=== PATIENT | female | born 1970 | race Caucasian/White ===

== ENCOUNTER 2018-10-13 08:08 | Day surgery (SDC) | payer BC, SELFPAY ==
--- NOTE | 2018-10-13 06:37 | W.COLOREPORT ---
Date of service: 10/13/18 Time of Service: 09:00 Colonoscopy Report Date of procedure: 10/13/18 Pre-op diagnosis general: Colon Cancer Screening Post-op diagnosis procedure note: same Procedure: Colonoscopy Surgeon: Hawa Farmer Anesthesia proc note operative: MAC (Manjit Goff, HUMAN RESOURCES OPERATIONS MANAGER/ ASA 2) Estimated blood loss (mL): 0 Pathology: none sent Complications: None Disposition: same day Indications: Mrs. Flaherty is a pleasant 48-year-old female who was seen in the office for her first screening colonoscopy. Risks, benefits and complications have been reviewed. Complications include but are not limited to bleeding, pain, perforation, missed small lesion/polyp, sore throat, aspiration and adverse reaction to the medications. Questions were entertained and answered to their satisfaction and they wished to proceed. No guarantees were given or implied. Prep: Miralax/Dulcolax Procedure Start Time: 09:00 Procedure End Time: 09:26 Retraction Time: 12 minutes Findings: Normal colon Procedure Description: After informed consent was obtained the patient was taken to the procedure room and placed in a left decubitous position. Monitors were applied and a time out was done. The patients name, date of , procedure, allergies to medications and metal in their body was reviewed. The patient was then sedated. Once sedated and comfortable a rectal exam was done. External exam was normal. Internal exam revealed a normal sphincter tone and no palpable masses. The scope was then introduced and retro-flexed. No internal hemorrhoids were identified. The scope was then advanced to the cecum without difficulty. The TI and appendiceal orifice were identified. The prep was adequate. The scope was then slowly retracted over 12 minutes back into the rectum. There were no polyps and no diverticuli. The scope was removed and the patient was woken up and taken back to Same day surgery in stable condition. The patient tolerated the procedure well and there were no immediate complications. Follow up: The patient should follow up in 10 years unless they develop changes in bowel habits or other new gastrointestinal complaints.
--- NOTE | 2018-10-13 06:40 | W.PM.DSUDISC ---
Discharge Plan Disposition Patient Disposition: HOME Condition: Good Discharge Details Reason For Visit: Colon Cancer Screening Attending Provider: Hawa Farmer Primary Care Provider: Nell Nicholson Home Meds and New Rx's Prescriptions: Continued blood-glucose meter misc .Route .MEDSUPPLY Qty: 1 RF: 0 Blood Glucose Test strip .ROUTE .MEDSUPPLY Qty: 100 RF: 3 lancets misc .ROUTE .MEDSUPPLY Qty: 100 RF: 3 simvastatin 20 mg tablet 20 mg PO HS Qty: 90 RF: 3 Mirena 1 EACH intrauterine device 1 ea Intrauterine as directed RF: 0 One Daily For Women 1 EACH tablet 1 ea PO DAILY RF: 0 calcium-vitamin D3-vitamin K 1 EACH tablet,chewable 1 ea PO DAILY RF: 0 FreeStyle Lite Strips 1 EACH strip 1 ea Miscellaneous DAILY Qty: 100 RF: 5 lancets [FreeStyle Lancets] 1 EACH misc 1 ea Miscellaneous DAILY Qty: 100 RF: 3 venlafaxine 75 mg capsule,extended release 24hr 75 mg PO DAILY Qty: 90 RF: 3 lisinopril 5 mg tablet 5 mg PO DAILY Qty: 90 RF: 3 metformin 750 mg tablet extended release 24 hr 750 mg PO BID Qty: 180 RF: 3 aspirin [Aspir-81] 81 MG tablet,delayed release (DR/EC) 81 mg PO DAILY RF: 0 Discontinued bisacodyl [Dulcolax (bisacodyl)] 5 mg tablet,delayed release (DR/EC) 5 mg PO ONCE Qty: 4 RF: 0 polyethylene glycol 3350 17 gram/dose powder 255 g PO ONCE Qty: 255 RF: 0 Discharge Instructions Instructions: Colonoscopy (DC) Additional Instructions: Findings: Normal colon Follow up: 10 years Please call if you develop: fevers >101.5 Nausea or Vomiting Abdominal pain that is not transient DAY SURGERY UNIT POST COLONOSCOPY INSTRUCTIONS 1. Because there will be medication in your system for the next 24 hours, you may feel a little sleepy. Your coordination will be affected. Therefore: a. Do not drive or operate dangerous equipment for 24 hours. b. Do not drink alcohol beverages for 24 hours (not even beer). c. Plan to go home and rest for the day. 2. Generally there are no restrictions on your activity after a day or so has gone by, but you may feel a bit fatigued for a few days. 3 After you arrive home you may have a light meal and return to a normal diet as you can tolerate it without feeling sick to your stomach. 4. After surgery, you may feel pain or discomfort. This should be only transient, but if it persists please contact your doctor. 5. If there are any questions regarding the findings of your procedure, please feel free to contact your doctor. 6. If you are unable to contact your doctor with a problem, contact the hospital at [phone]. 7. Continue all your regular medications unless directed otherwise. I understand the above instructions and have no questions. Signature of Patient or Responsible Adult Escort Date/Time Name of Responsible Adult Escort Signature of Nurse Date/Time Activity:: Activity as Tolerated Diet:: As Tolerated Discharge Orders Discharge Orders: Discharge Order (Routine); Ordered 10/13/18 Ordered By: Hawa Farmer DS: Diagnosis Discharge Diagnosis (1) S/P colonoscopy: Status: Acute
[2018-10-13 08:29] VITALS: BP 109/78; PULSE 97; RESP 16; TEMP 37.2; O2SAT 99
[2018-10-13] MEDS: Lactated Ringers 1,000 ML 80 ML IV (08:49)
[2018-10-13 10:00] VITALS: BP 112/83; PULSE 70; RESP 16; O2SAT 100
== END 2018-10-13 10:35 | disposition home or self-care (01) ==
LOC: SUR 08:09
PROVIDERS: PCP Nurse Practitioner Family; Visit Provider Surgery
PROC: 0DJD8ZZ Inspection of Lower Intestinal Tract, Via Natural or Artificial Opening Endoscopic (ICD-10-PCS; CPT 45378; principal; 2018-10-13 09:15)
DX: Z12.11 Encounter for screening for malignant neoplasm of colon (principal); E11.9 Type 2 diabetes mellitus without complications; Z79.84 Long term (current) use of oral hypoglycemic drugs
CPT/HCPCS: 45378; J2250

== ENCOUNTER 2019-03-01 07:21 | Outpatient (CLI) | payer BC, SELFPAY ==
[2019-03-01 09:40] LABS: ALT 17 U/L (12-78); AST 11 U/L (15-37); Alkaline Phosphatase 56 U/L (46-116); Anion Gap 9.5 mmol/L (3-11); BUN 12 mg/dL (7-18); Bilirubin, Total 0.2 mg/dL (0.2-1.0); CO2 29.5 mmol/L (21.0-32.0); CREATININE 0.53 mg/dL (0.55-1.02); Calcium 9.1 mg/dL (8.5-10.1); Calculated LDL 82; Chloride 102 mmol/L (98-107); Cholesterol 153 mg/dL (50-200); Glucose 114 mg/dL (70-100); HDL Cholesterol 60 mg/dL (40-60); Sodium 141 mmol/L (136-145); Triglyceride 55 mg/dL (30-150)
[2019-03-01 09:44] LABS: COMMENT (LAB VIEW ONLY) 53.44 mg/dL; Microalb ug/mg Crea 15.9 ug/mg Cr
[2019-03-01 09:55] LABS: Hemoglobin A1C 7.2 % (4.5-6.2)
== END 2019-03-01 07:41 ==
PROVIDERS: PCP Nurse Practitioner Family; Visit Provider Nurse Practitioner Family
DX: E11.3299 Type 2 diabetes mellitus with mild nonproliferative diabetic retinopathy without macular edema, unspecified eye (principal); E78.5 Hyperlipidemia, unspecified
CPT/HCPCS: 36415; 80053; 80061; 83721; 82043; 82570; 83036

== ENCOUNTER 2020-04-18 04:32 | Outpatient (CLI) | payer OTHER, SELFPAY ==
[2020-04-18 08:05] LABS: Hemoglobin A1C 7.2 % (3.8-5.6)
[2020-04-18 08:11] LABS: COMMENT (LAB VIEW ONLY) 61.93 mg/dL
[2020-04-18 08:35] LABS: Anion Gap 9.3 mmol/L (3-11); BUN 12 mg/dL (7-18); CO2 30.7 mmol/L (21.0-32.0); CREATININE 0.57 mg/dL (0.55-1.02); Calcium 9.4 mg/dL (8.5-10.1); Calculated LDL 75 mg/dL (<100); Chloride 103 mmol/L (98-107); Cholesterol 151 mg/dL (<200); Glucose 110 mg/dL (74-106); HDL Cholesterol 67 mg/dL (40-60); Potassium 4.2 mmol/L (3.5-5.1); Sodium 143 mmol/L (136-145); Triglyceride 45 mg/dL (<150)
== END 2020-04-18 04:52 ==
PROVIDERS: PCP Nurse Practitioner Family; Visit Provider Nurse Practitioner Family
DX: E11.9 Type 2 diabetes mellitus without complications (principal); E78.5 Hyperlipidemia, unspecified
CPT/HCPCS: 36415; 80048; 80061; 82043; 82570; 83036

== ENCOUNTER 2020-10-06 02:51 | Outpatient (CLI) | payer OTHER, SELFPAY ==
--- NOTE | 2020-10-06 08:12 | DI.RAD_ITS ---
EXAM: XR HIP RT COMPLETE AP PELVIS CLINICAL HISTORY: r/o bony abnormality,RT HIP PAIN, M25.551. TECHNIQUE: 2D digital imaging was performed. COMPARISON: No exams were available for comparison FINDINGS: There are no pelvic or hip fractures evident. No degenerative changes evident in the hips. SI joint s appear unremarkable. Surgical clips in the right iliac fossa probably from prior appendectomy. Th ere is also an IUD in the central pelvis. IMPRESSION: No pelvic nor obvious hip fractures evident. DATA REPOSITORY: RADIATION DOSE DELIVERED:
== END 2020-10-06 03:11 ==
PROVIDERS: PCP Nurse Practitioner Family; Visit Provider Nurse Practitioner Family
DX: M25.551 Pain in right hip (principal)
CPT/HCPCS: 73502

== ENCOUNTER 2021-05-09 02:51 | Outpatient (CLI) | payer OTHER, SELFPAY ==
[2021-05-09 07:48] LABS: HCT 40.1 % (36.0-46.0); HGB 12.1 g/dL (11.2-15.7); MCH 26.9 pg (27.0-33.0); MCHC 30.2 % (32.0-36.0); MCV 89.1 fL (80-95); MPV 8.7 fL (8.0-11.0); Platelet Count 403 10^3/uL (130-400); RDW 13.4 % (11.7-14.6); RDW-SD 43.9 fL; WBC 8.73 10^3/uL (4.4-10.8)
[2021-05-09 08:11] LABS: COMMENT (LAB VIEW ONLY) 50.57 mg/dL
[2021-05-09 08:47] LABS: Hemoglobin A1C 6.9 % (<5.7)
[2021-05-09 09:06] LABS: ALT 20 U/L (14-59); AST 9 U/L (15-37); Albumin 4.2 g/dL (3.4-5.0); Alkaline Phosphatase 63 U/L (46-116); Anion Gap 11.7 mmol/L (3-11); BUN 16 mg/dL (7-18); Bilirubin, Total 0.1 mg/dL (0.2-1.0); CO2 27.3 mmol/L (21.0-32.0); CREATININE 0.7 mg/dL (0.55-1.02); Calcium 9.5 mg/dL (8.5-10.1); Calculated LDL 82 mg/dL (<100); Chloride 102 mmol/L (98-107); Cholesterol 162 mg/dL (<200); Glucose 112 mg/dL (74-106); HDL Cholesterol 67 mg/dL (40-60); Potassium 4.9 mmol/L (3.5-5.1); Sodium 141 mmol/L (136-145); Total Protein 7.4 g/dL (6.4-8.2); Triglyceride 65 mg/dL (<150)
== END 2021-05-09 02:52 | disposition home or self-care (01) ==
LOC: LBO 02:51
PROVIDERS: PCP Nurse Practitioner Family; Visit Provider Nurse Practitioner Family
DX: E11.65 Type 2 diabetes mellitus with hyperglycemia (principal); E78.5 Hyperlipidemia, unspecified; Z51.81 Encounter for therapeutic drug level monitoring
CPT/HCPCS: 36415; 80053; 80061; 85027; 82043; 82570; 83036

== ENCOUNTER → 2021-06-12 01:14 | Outpatient (CLI) | payer OTHER, SELFPAY ==
--- NOTE | 2021-06-12 07:45 | DI.MAMMO_ITS ---
Exam(s) MAMMO SCREENING EXAM: MAMMO SCREENING CLINICAL HISTORY: screening,Z12.39 TECHNIQUE: Bilateral full field digital CC and MLO mammographic images were obtained with 3D tomosyn thesis and utilizing computer aided detection (CAD). COMPARISON: Available for comparison. FINDINGS: Masses/Architectural Distortion: None seen. Microcalcifications: No suspicious pleomorphic-type are seen. Skin Thickening/Nipple Retraction: None. IMPRESSION: 1. No significant interval change with no specific features of malignancy noted. 2. Unless there is more urgent need, screening mammography is recommended, as per [employer] guidelines. BI-RADS Category 1 - Negative Breast Density - Category B - Scattered areas of fibroglandular density Breast density category C or D implies that the patient has dense breast tissue. Dense breast tissue is very common and is not abnormal but dense breast tissue can make it harder to find cancer on a ma mmogram. Also, dense breast tissue may increase their breast cancer risk. This information about the result of the mammogram report was provided to the patient to raise their awareness. Use this report when you speak with the patient about their risks for breast cancer, which includes their family hist ory. At that time, you may recommend for more screening tests (Ultrasound or MRI) as they might be us eful based on their risk. A negative radiographic report should not delay biopsy if a dominant or clinically suspicious mass is present. Up to ten percent of cancers are not identified on mammography. A negative report may reinforce clinical impression. Adenosis and dense breasts may obscure an underlying neoplasm. False positive reports average 6 to 10%. Patient will receive a letter notifying them of these results.
== END ==
PROVIDERS: PCP Nurse Practitioner Family; Visit Provider Nurse Practitioner Family
DX: Z12.31 Encounter for screening mammogram for malignant neoplasm of breast (principal)
CPT/HCPCS: 77063; 77067

== ENCOUNTER 2022-08-16 01:37 | Outpatient (CLI) | payer OTHER, SELFPAY ==
[2022-08-16 07:24] LABS: HCT 41.6 % (36.0-46.0); HGB 12.9 g/dL (11.2-15.7)
[2022-08-16 08:07] LABS: COMMENT (LAB VIEW ONLY) 35.58 mg/dL; Microalb ug/mg Crea 11.5 ug/mg Cr
[2022-08-16 08:08] LABS: ALT 17 U/L (14-59); AST 13 U/L (15-37); Albumin 4.2 g/dL (3.4-5.0); Alkaline Phosphatase 77 U/L (46-116); Anion Gap 8.3 mmol/L (3-11); BUN 15 mg/dL (7-18); Bilirubin, Total 0.3 mg/dL (0.2-1.0); CO2 31.7 mmol/L (21.0-32.0); CREATININE 0.7 mg/dL (0.55-1.02); Calcium 9.5 mg/dL (8.5-10.1); Calculated LDL 87 mg/dL (<100); Chloride 100 mmol/L (98-107); Cholesterol 171 mg/dL (<200); Estimated GFR 102.71 (mL/min/1.73m2); Glucose 126 mg/dL (74-106); HDL Cholesterol 68 mg/dL (40-60); Potassium 4.5 mmol/L (3.5-5.1); Sodium 140 mmol/L (136-145); Triglyceride 82 mg/dL (<150)
== END 2022-08-16 01:38 | disposition home or self-care (01) ==
LOC: LBO 01:37
PROVIDERS: PCP Nurse Practitioner Family; Visit Provider Nurse Practitioner Family
DX: E11.3299 Type 2 diabetes mellitus with mild nonproliferative diabetic retinopathy without macular edema, unspecified eye (principal); E78.5 Hyperlipidemia, unspecified; E11.9 Type 2 diabetes mellitus without complications; Z51.81 Encounter for therapeutic drug level monitoring
CPT/HCPCS: 36415; 80053; 80061; 82043; 82570; 85014; 85018

== ENCOUNTER 2022-10-17 16:37 | Outpatient (REF) | payer OTHER, SELFPAY ==
--- NOTE | 2022-10-17 16:35 | PAPFT_PTH ---
PATIENT: Amanda Flaherty LOC: [facility] U#:[id number] AGE/SX: 52/F ROOM: RE10/17/[address]: Lea Victoria MD : [id number] BED: DIS: 10/17/2022 SPEC #: [id number] RECD: 10/17/22 17:45 STATUS: ÁNGEL REQ #: [id number] OLGA: 10/17/22 16:[address]: Lea Victoria DEPT: [facility] Cytology RECD BY: Candice Parker ENTERED: 10/17/22 17:46 SP TYPE: PAPFT JAJA DR: Nell Nicholson APRN Tissues: 1 - CX/ENDOCX FOR PAP SMEARS Procedures: PAP THIN PREP/UVM Screening HPV DNA PROBE Comments: [id number]
== END 2022-10-17 16:38 | disposition home or self-care (01) ==
LOC: LBN 16:37
PROVIDERS: PCP Nurse Practitioner Family; Visit Provider Obstetrics & Gynecology
DX: Z12.4 Encounter for screening for malignant neoplasm of cervix (principal); Z11.51 Encounter for screening for human papillomavirus (HPV)
CPT/HCPCS: 88142; 87624

== ENCOUNTER 2022-12-04 01:19 | Outpatient (CLI) | payer OTHER, SELFPAY ==
--- NOTE | 2022-12-04 07:45 | DI.MAMMO_ITS ---
Exam(s) MAMMO SCREENING EXAM: MAMMO SCREENING CLINICAL HISTORY: screening,Z12.39 TECHNIQUE: Bilateral full field digital CC and MLO mammographic images were obtained with 3D tomosyn thesis and utilizing computer aided detection (CAD). COMPARISON: Available for comparison. FINDINGS: Masses/Architectural Distortion: None seen. Microcalcifications: No suspicious pleomorphic-type are seen. Skin Thickening/Nipple Retraction: None. IMPRESSION: 1. No significant interval change with no specific features of malignancy noted. 2. Unless there is more urgent need, screening mammography is recommended, as per [employer] guidelines. BI-RADS Category 1 - Negative Breast Density - Category B - Scattered areas of fibroglandular density Breast density category C or D implies that the patient has dense breast tissue. Dense breast tissue is very common and is not abnormal but dense breast tissue can make it harder to find cancer on a ma mmogram. Also, dense breast tissue may increase their breast cancer risk. This information about the result of the mammogram report was provided to the patient to raise their awareness. Use this report when you speak with the patient about their risks for breast cancer, which includes their family hist ory. At that time, you may recommend for more screening tests (Ultrasound or MRI) as they might be us eful based on their risk. A negative radiographic report should not delay biopsy if a dominant or clinically suspicious mass is present. Up to ten percent of cancers are not identified on mammography. A negative report may reinforce clinical impression. Adenosis and dense breasts may obscure an underlying neoplasm. False positive reports average 6 to 10%. Patient will receive a letter notifying them of these results.
== END 2022-12-04 01:39 ==
LOC: DI 01:19
PROVIDERS: PCP Nurse Practitioner Family; Visit Provider Obstetrics & Gynecology
DX: Z12.31 Encounter for screening mammogram for malignant neoplasm of breast (principal)
CPT/HCPCS: 77063; 77067

== ENCOUNTER 2023-02-05 17:12 | Outpatient (CLI) | payer OTHER, SELFPAY ==
[2023-02-05 18:25] LABS: TSH (W/Ref FT4) 2.14 uIU/mL (0.36-3.74); Vitamin B12 671 pg/mL (193-986)
== END 2023-02-05 17:13 | disposition home or self-care (01) ==
LOC: LBO 17:13
PROVIDERS: PCP Nurse Practitioner Family; Visit Provider Nurse Practitioner Family
DX: R41.3 Other amnesia (principal); E11.9 Type 2 diabetes mellitus without complications; E78.5 Hyperlipidemia, unspecified; F32.89 Other specified depressive episodes
CPT/HCPCS: 36415; 82607; 84443

== ENCOUNTER 2024-03-01 03:05 | Outpatient (CLI) | payer OTHER, SELFPAY ==
[2024-03-01 12:30] LABS: Abs Immature Grans 0.02 10^3/uL (0.0-0.06); Absolute Basophil Count 0.08 10^3/uL (0.0-0.2); Absolute Lymphocyte Count 2.54 10^3/uL (1.2-3.4); Absolute Monocyte Count 0.52 10^3/uL (0.1-0.8); Absolute Neutrophil Count 4.42 10^3/uL (1.2-6.7); Eosinophils % 2.6 %; HCT 40.5 % (36.0-46.0); HGB 12.2 g/dL (11.2-15.7); Immature Grans % 0.3 %; Lymphocytes % 32.6 %; MCH 26.5 pg (27.0-33.0); MCHC 30.1 % (32.0-36.0); MCV 88 fL (80-95); MPV 9.5 fL (8.0-11.0); Monocytes % 6.7 %; Neutrophils % 56.8 %; Platelet Count 435 10^3/uL (130-400); RDW 14.3 % (11.7-14.6); RDW-SD 45.8 fL; WBC 7.78 10^3/uL (4.4-10.8)
[2024-03-01 12:45] LABS: ALT 19 U/L (14-59); AST 12 U/L (15-37); Albumin 4.2 g/dL (3.4-5.0); Alkaline Phosphatase 61 U/L (46-116); BUN 18 mg/dL (7-18); Bilirubin, Total 0.32 mg/dL (0.2-1.0); CREATININE 0.7 mg/dL (0.55-1.02); Calcium 10.1 mg/dL (8.5-10.1); Calculated LDL 91 mg/dL (<100); Chloride 102 mmol/L (98-107); Cholesterol 174 mg/dL (<200); Estimated GFR 102.07 (mL/min/1.73m2); Glucose 111 mg/dL (74-106); HDL Cholesterol 68 mg/dL (40-60); Potassium 3.9 mmol/L (3.5-5.1); Sodium 142 mmol/L (136-145); Total Protein 7.7 g/dL (6.4-8.2); Triglyceride 78 mg/dL (<150)
== END 2024-03-01 03:06 | disposition home or self-care (01) ==
LOC: LOS 03:05
PROVIDERS: PCP Nurse Practitioner; Visit Provider Nurse Practitioner
DX: E11.65 Type 2 diabetes mellitus with hyperglycemia (principal); E78.5 Hyperlipidemia, unspecified
CPT/HCPCS: 36415; 80053; 80061; 85025

== ENCOUNTER 2025-04-05 04:47 | Outpatient (CLI) | payer OTHER, SELFPAY ==
[2025-04-05 08:07] LABS: Creatine Kinase 104 U/L (26-192)
[2025-04-05 08:08] LABS: ALT 20 U/L (14-59); AST 13 U/L (15-37); Albumin 3.9 g/dL (3.4-5.0); Alkaline Phosphatase 65 U/L (46-116); Anion Gap 8.9 mmol/L (3-11); BUN 15 mg/dL (7-18); Bilirubin, Total 0.2 mg/dL (0.2-1.0); CO2 29.1 mmol/L (21.0-32.0); Calcium 9.3 mg/dL (8.5-10.1); Calculated LDL 79 mg/dL (<100); Chloride 102 mmol/L (98-107); Cholesterol 170 mg/dL (<200); Estimated GFR 105.28 (mL/min/1.73m2); Glucose 120 mg/dL (74-106); HDL Cholesterol 65 mg/dL (>or=50); Potassium 4.2 mmol/L (3.5-5.1); Sodium 140 mmol/L (136-145); Total Protein 7.2 g/dL (6.4-8.2); Triglyceride 132 mg/dL (<150)
== END 2025-04-05 04:48 | disposition home or self-care (01) ==
LOC: LBO 04:48
PROVIDERS: PCP Nurse Practitioner; Referring Provider Nurse Practitioner Family; Visit Provider Nurse Practitioner Family
DX: E78.5 Hyperlipidemia, unspecified (principal); E11.3299 Type 2 diabetes mellitus with mild nonproliferative diabetic retinopathy without macular edema, unspecified eye
CPT/HCPCS: 36415; 80053; 80061; 82550

== ENCOUNTER 2025-05-11 10:20 | Outpatient (CLI) | payer OTHER, SELFPAY ==
--- NOTE | 2025-05-11 07:45 | DI.MAMMO_ITS ---
Exam(s) MAMMO SCREENING EXAM: MAMMO SCREENING CLINICAL HISTORY: screening z12.39 TECHNIQUE: Bilateral full field digital CC and MLO mammographic images were obtained with 3D tomosynthesis and utilizing computer aided detection (CAD). COMPARISON: Comparison is made with prior examinations. FINDINGS: Masses/Architectural Distortion: No suspicious masses or areas of architectural distortion are present. Microcalcifications: No suspicious pleomorphic-type are seen. Skin Thickening/Nipple Retraction: None. IMPRESSION: 1. No significant interval change with no specific features of malignancy noted. 2. Unless there is more urgent need, screening mammography is recommended, as per [employer] guidelines. BI-RADS Category 1 - Negative Breast Density - Category B - There are scattered areas of fibroglandular density. Breast density Category C or D implies that the patient has dense breast tissue. Dense breast tissue can make it harder to find cancer on a mammogram. Dense breast tissue is also associated with an increased risk of breast cancer. This information about the result of the mammogram report was provided to the patient to raise their awareness. Use this report when you speak with the patient about their risks for breast cancer, which includes their family history. At that time, you may recommend additional screening tests (Ultrasound or MRI) as these tests may add significant information. A negative radiographic report should not delay biopsy if a dominant or clinically suspicious mass is present. Up to ten percent of cancers are not identified on mammography. A negative report may reinforce clinical impression. Adenosis and dense breasts may obscure an underlying neoplasm. False positive reports average 6 to 10%. Patient will receive a letter notifying them of these results.
== END 2025-05-11 10:40 ==
LOC: DI 10:21
PROVIDERS: PCP Nurse Practitioner; Visit Provider Nurse Practitioner Family
DX: Z12.31 Encounter for screening mammogram for malignant neoplasm of breast (principal)
CPT/HCPCS: 77063; 77067